=== PATIENT | male | born 1995 | race Caucasian/White ===

== ENCOUNTER → 2016-10-25 | Outpatient (CLI) | payer MEDICAID ==
[~2016-10-25] MED LIST: AMMONIUM LACTATE1 ML; AZITHROMYC200 MG/5 M PO; BROVANA15 MCG/2 M IH; FLONASE ALLERG9.9 ML NS; GABAPENTIN100 M1 PO; IPRATROPIUM BROM3 M1 IH; MIRALAX(PO17 GM/1 PA PO; MUPIROCIN 2% O1 INC1 TP; PROTONIX40 MG/PACK PO; ZOFRAN4 MG PO
--- NOTE | 2016-10-25 15:46 | RADIOLOGY REPORT PS360 ---
CHEST-AP VIEW ONLY HISTORY: CHEST PAIN AT REST, COUGH ORDERING PHYSICIAN: Florencio Vuong MD PATIENT AGE: 21 years COMPARISON: 05/29/2016 FINDINGS: The cardiomediastinal silhouette and pulmonary vascularity are within normal limits. The lungs are clear without infiltrates, suspicious nodules, or pleural effusions. Multiple interpedicular screws with stabilizing rods once again noted along the thoracic and lumbar spine.. IMPRESSION: No change with no acute finding
== END ==
LOC: RAD 12:10
DX: R07.9 Chest pain, unspecified (principal); R05 Cough

== ENCOUNTER → 2016-11-21 | Outpatient (CLI) | payer MEDICAID | LOC: LAB 09:50 | DX: R10.13 Epigastric pain (principal) ==